=== PATIENT | male | born 1950 | race Caucasian/White ===

== ENCOUNTER → 2020-09-29 | Outpatient (CLI) | payer MEDICARE, OTHER ==
[~2020-09-29] MED LIST: FISH OIL 1,2001 EAC2 PO; GLUCOPHAGE850 MG PO; IBUPROFEN600 MG PO; INVOKANA100 MG PO; PRINIVIL20 MG PO; PROTONIX40 MG PO; ZOCOR20 MG PO
== END ==
LOC: CT 09-19 10:00
DX: R10.816 Epigastric abdominal tenderness (principal); R74.01 Elevation of levels of liver transaminase levels; K80.80 Other cholelithiasis without obstruction; K85.90 Acute pancreatitis without necrosis or infection, unspecified
CPT/HCPCS: 36415; 74160; 82565; Q9963; Q9967

== ENCOUNTER → 2020-12-05 | Outpatient (CLI) | payer MEDICARE, OTHER | LOC: KOH-I 08:15 | DX: R10.10 Upper abdominal pain, unspecified (principal); K76.0 Fatty (change of) liver, not elsewhere classified; K80.20 Calculus of gallbladder without cholecystitis without obstruction | CPT/HCPCS: 76705 ==

== ENCOUNTER → 2020-12-09 | Outpatient (CLI) | payer MEDICARE, OTHER | LOC: MRI 08:30 | DX: K86.2 Cyst of pancreas (principal); K80.20 Calculus of gallbladder without cholecystitis without obstruction | CPT/HCPCS: 36415; 74183; 82565; A9577 ==

== ENCOUNTER → 2021-05-18 | Outpatient (CLI) | payer MEDICARE, OTHER | LOC: KOH-I 05-17 13:30 | DX: G25.0 Essential tremor (principal) | CPT/HCPCS: 70450 ==

== ENCOUNTER → 2021-06-21 | Outpatient (CLI) | payer MEDICARE, OTHER | LOC: MRI 11:29 | DX: K86.89 Other specified diseases of pancreas (principal); K80.80 Other cholelithiasis without obstruction | CPT/HCPCS: 36415; 74183; 82565; A9577 ==

== ENCOUNTER → 2021-09-14 | Outpatient (CLI) | payer MEDICARE, OTHER | LOC: EMI 09:09 | DX: G20 Parkinson's disease (principal); G25.2 Other specified forms of tremor; R43.0 Anosmia; R29.898 Other symptoms and signs involving the musculoskeletal system | CPT/HCPCS: 70551 ==

== ENCOUNTER → 2021-11-16 | Outpatient (CLI) | payer MEDICARE, OTHER | LOC: KOH-I 11-15 09:30 | DX: R22.1 Localized swelling, mass and lump, neck (principal); E04.1 Nontoxic single thyroid nodule | CPT/HCPCS: 76536 ==

== ENCOUNTER → 2022-01-26 | Outpatient (CLI) | payer MEDICARE, OTHER | LOC: KOH-I 01-16 08:30 | DX: R22.1 Localized swelling, mass and lump, neck (principal) | CPT/HCPCS: 70490 ==